=== PATIENT | female | born 1985 | race Caucasian/White ===

== ENCOUNTER 2017-10-15 08:30 | Inpatient (IN) | payer OTHER ==
[~2017-10-15] VITALS: Ht 154.9 cm; Wt 2.7 kg
[2017-10-15] MEDS ORDERED: LABETALOL HCL200 MG PO (11:06)
[2017-10-18] MEDS ORDERED: PRENATAL TABLE1 EAC1 PO (06:45)
== END 2017-10-21 11:55 | DRG 766 ==
LOC: O/R 10-18 06:00 → SURH 10-18 08:30 → OB/GYN 10-18 15:33
PROVIDERS: Obstetrics & Gynecology
PROC: 0UT70ZZ Resection of Bilateral Fallopian Tubes, Open Approach (ICD-10-PCS; 2017-10-18)
PROC: 4A1HXCZ Monitoring of Products of Conception, Cardiac Rate, External Approach (ICD-10-PCS; 2017-10-18)
PROC: 4A033R1 Measurement of Arterial Saturation, Peripheral, Percutaneous Approach (ICD-10-PCS; 2017-10-18)
PROC: 10D00Z1 Extraction of Products of Conception, Low, Open Approach (ICD-10-PCS; principal; 2017-10-18 13:00)
DX: O34.211 Maternal care for low transverse scar from previous cesarean delivery (principal); Z3A.39 39 weeks gestation of pregnancy; Z37.0 Single live birth; Z30.2 Encounter for sterilization; Z64.1 Problems related to multiparity